=== PATIENT | male | born 1975 | race American Indian/Alaskan Native ===

== ENCOUNTER 2021-03-20 07:36 | Day surgery (SDC) | payer BC ==
[2021-03-15 11:43] LABS: Alanine Aminotransferase 51 units/L (7-56); Albumin 4.4 g/dL (3.9-5); BUN/Creatinine Ratio 6; Blood Urea Nitrogen 5 mg/dL (9-20); Calcium 9.1 mg/dL (8.4-10.2); Hemolysis Index 4
[2021-03-15 11:44] LABS: Hematocrit 45.2 % (35.5-45.6); Mean Corpuscular HGB Conc 33 % (32-34); Mean Corpuscular Volume 83 fl (84-94); Platelet Count 249 K/mm3 (140-440); Red Blood Count 5.41 M/mm3 (3.65-5.03)
[2021-03-20] MEDS ORDERED: ONDANSETRON 4 MG/2 ML INJ IV PRN (09:09)
[2021-03-20] MEDS ORDERED: HYDROmorphone 1 MG/1 ML INJ IV PRN ×2 (09:09)
--- NOTE | 2021-03-20 09:10 | Anesthesia Day of Surgery ---
Anesthesia Day of Surgery - Day of Surgery Patient Examined: Yes Patient H&P Reviewed: Yes Patient is NPO: Yes
--- NOTE | 2021-03-20 09:14 | Anesthesia Consultation ---
Anesthesia Consult and Med Hx Date of service: 03/20/21 - Airway Anesthetic Teeth Evaluation: Good ROM Head & Neck: Adequate Mental/Hyoid Distance: Adequate Mallampati Class: Class IV Intubation Access Assessment: Possibly Difficult - Pre-Operative Health Status ASA Pre-Surgery Classification: ASA3 Proposed Anesthetic Plan: General - Pulmonary Hx Smoking: No Hx Sleep Apnea: No (FABBY PRE SCREEN LOW RISK) - Cardiovascular System Hx Hypertension: Yes - Central Nervous System Hx Psychiatric Problems: No - Gastrointestinal Hx Gastroesophageal Reflux Disease: No - Endocrine Hx Non-Insulin Dependent Diabetes: Yes - Hematic Hx Anemia: No Hx Sickle Cell Disease: No - Other Systems Hx Alcohol Use: Yes (WINE 3-4 DAYS PER WEEK) Hx Cancer: No
[2021-03-20] MEDS ORDERED: LACTATED RINGERS 1,000 ML IV SCH (09:15)
[2021-03-20] MEDS ORDERED: ceFAZolin/Water 2 GM/20 ML 2 GM/20 ML SYRINGE IV ONE (09:28)
[2021-03-20] MEDS ORDERED: ceFAZolin/STERILE WATER 2 GM/20 ML SYRINGE IV NR (10:00)
[2021-03-20] MEDS ORDERED: MIDAZOLAM 2 MG/2 ML INJ IV NR (10:00)
[2021-03-20] MEDS ORDERED: fentaNYL 100 MCG/2 ML INJ ONE (10:03)
[2021-03-20] MEDS ORDERED: LIDOCAINE MPF (2%) 20 MG/1 ML VIAL 5 ML ONE (10:03)
[2021-03-20] MEDS ORDERED: propofoL 200 MG/20 ML VIAL IV ONE (10:04)
[2021-03-20] MEDS ORDERED: dexAMETHasone 20 MG/5 ML VIAL ONE (10:30)
[2021-03-20] MEDS ORDERED: PHENYLEPHRINE/NS 1,000 MCG/10 ML SYRINGE (OR USE) IV ONE (10:30)
[2021-03-20] MEDS ORDERED: ONDANSETRON 4 MG/2 ML INJ ONE (10:30)
[2021-03-20] MEDS ORDERED: WATER FOR IRRIG STERILE 1,500 ML BOTTLE IR ONE (10:40)
--- NOTE | 2021-03-20 11:20 | Operative Report ---
DATE OF SURGERY: 03/20/2021 PREOPERATIVE DIAGNOSES: 1. Elevated PSA. 2. BI-RADS 5 lesion on MRI. POSTOPERATIVE DIAGNOSES: 1. Elevated PSA. 2. BI-RADS 5 lesion on MRI. OPERATIVE PROCEDURE: Transrectal ultrasound of the prostate with prostate needle biopsy. ATTENDING: Roby Jean MD TARGET MAN: None. ANESTHESIA: MAC. ESTIMATED BLOOD LOSS: 5 mL. DRAINS: None. COMPLICATIONS: None. SPECIMENS: Prostate needle biopsies. INDICATIONS FOR PROCEDURE: The patient is a 46-year-old man with an elevated PSA of 32. He had an MRI that showed a PI-RADS 5 lesion. He presents today for prostate needle biopsy. DESCRIPTION OF PROCEDURE IN DETAIL: After induction of suitable sedation and proper positioning and preparation in the dorsal lithotomy position, a prostate ultrasound was performed. The patient had a 33 gram prostate. He had a hypoechoic lesion on the right side. This area was biopsied more than in the usual manner. A total of 18 biopsies were taken. Attention was paid to the hypoechoic lesion and extra biopsies were taken. The sales representative groceries biopsies of the remaining prostate were taken in the usual fashion. The patient was then awakened from anesthesia and transferred to recovery room in stable condition. He tolerated this procedure well. He will return to the office in 7-10 days to review his pathology results. TID: [id number] RECEIPT: [id number] ELIA/STD
--- NOTE | 2021-03-20 12:21 | Ultrasound Report ---
Ultrasound Transrectal INDICATION: ELEVATED PSA. TECHNIQUE: Ultrasound guidance for prostate biopsy COMPARISON: None available. FINDINGS: Ultrasound guidance was provided for prostate biopsy. See operative note for full details. Prostate v olume was 33 cc. Signer Name: Aryan Lawler MD Signed: 03/20/2021 12:16 PM Workstation Name: [id number]
[2021-03-20 13:09] VITALS: BP 118/71
--- NOTE | 2021-03-20 14:15 | Post Anesthesia Evaluation ---
- Post Anesthesia Evaluation Patient Participated: Yes Airway Patent: Yes Stable Respiratory Function: Yes Nausea/Vomiting: No Temp > 96.8F: Yes Pain Manageable: Yes Adequeate Hydration: Yes Anesthesia Complications: No Block Receding Appropriately: Not Applicable Patient on Ventilator: No
== END 2021-03-20 12:10 | disposition home or self-care (01) ==
LOC: OR 07:36
PROVIDERS: ATTEND Urology
DX: R97.20 Elevated prostate specific antigen [PSA] (principal); Z20.822 Contact with and (suspected) exposure to COVID-19; I10 Essential (primary) hypertension; E11.9 Type 2 diabetes mellitus without complications; Z79.899 Other long term (current) drug therapy; Z98.890 Other specified postprocedural states
CPT/HCPCS: 36415; 55700; 76872; 80053; 82962; 85027; 88305; J0690; J1100; J1170; J2250; J2370; J2405; J2704; J3010; J3490; J7120; U0003